=== PATIENT | male | born 2000 | race Caucasian/White ===

== ENCOUNTER 2022-07-14 09:27 | Day surgery (SDC) | payer OTHER ==
[~2022-07-14] VITALS: Ht 177.8 cm; Wt 105.7 kg
[~2022-07-14 09:27] MED LIST: NS 1,000 ML IV ONE; OMEP40CA5 PO
[2022-07-14] MEDS ORDERED: fentaNYL 100 MCG/2 ML INJECTION As Ordered ONE (10:05)
[2022-07-14] MEDS ORDERED: propofoL 200 MG/20 ML VIAL As Ordered ONE ×2 (10:29→10:41)
[2022-07-14] MEDS ORDERED: LIDOCAINE 2% 100MG/5ML SDV (FOR ANES.) As Ordered ONE (10:29)
[2022-07-14 11:04] VITALS: BP 135/82
== END 2022-07-14 11:06 | disposition home or self-care (01) ==
LOC: M OPP 09:27
PROVIDERS: ATTEND Internal Medicine Gastroenterology
DX: K21.00 Gastro-esophageal reflux disease with esophagitis, without bleeding (principal); R12 Heartburn; Z87.891 Personal history of nicotine dependence
CPT/HCPCS: 43239; 88305; J3010